=== PATIENT | male | born 1975 | race Two or more races ===

== ENCOUNTER 2023-04-10 01:44 | Emergency (ER) | payer BC ==
[2023-04-10 02:03] VITALS: PULSE 67; RESP 18; TEMP 97.9; BMI 32.3
[2023-04-10 03:10] LABS: BASO % 0.6 % (0-2.0); EOS % 1.7 % (0-4.5); HEMATOCRIT 42.1 % (35.4-49); HEMOGLOBIN 14.6 GM/dL (11.7-16.9); LYMPH % 38.6 % (8-40); MCH 28.4 pg (25.7-33.7); MCHC 34.6 g/dl (32.0-35.9); MEAN CELL VOLUME 82.1 fl (80-96); MEAN PLT VOLUME 8.9 fl (7.5-11.1); MONO % 4.1 % (3.8-10.2); PLATELET COUNT 256 10^3/uL (134-434); RBC 5.12 M/mm3 (4.00-5.60); RDW 13.9 % (11.9-15.9); WHITE BLOOD COUNT 11.6 K/mm3 (4.0-10.0)
[2023-04-10 03:30] LABS: POTASSIUM 4.4 mmol/L (3.5-5.1)
[2023-04-10 03:33] LABS: ALBUMIN 3.4 g/dl (3.4-5.0); BLOOD UREA NITROGEN 20.3 mg/dL (7-18); CALCIUM 9.1 mg/dL (8.5-10.1)
[2023-04-10 03:38] LABS: TOT PROT 6.7 g/dl (6.4-8.2)
[2023-04-10 03:42] LABS: BILIRUBIN,TOTAL 0.2 mg/dL (0.2-1)
[2023-04-10 04:15] VITALS: BP 138/93
== END 2023-04-10 04:15 | disposition home or self-care (01) ==
LOC: FER 01:44
DX: R10.12 Left upper quadrant pain (principal)
CPT/HCPCS: 36415; 76705-TC; 80053; 83690; 84484; 85025; 93005; 99285-25

== ENCOUNTER 2025-01-17 05:59 | Day surgery (SDC) | payer BC ==
[2025-01-14 09:20] VITALS: BMI 34.0
[2025-01-17 10:20] VITALS: TEMP 97.7
[2025-01-17 10:44] VITALS: BP 123/85; PULSE 65; RESP 19
== END 2025-01-17 10:44 | disposition home or self-care (01) ==
LOC: JASU-ENDO 05:59
PROVIDERS: ATTEND Internal Medicine Gastroenterology
PROC: 0DBN8ZX Excision of Sigmoid Colon, Via Natural or Artificial Opening Endoscopic, Diagnostic (ICD-10-PCS; 2025-01-17)
PROC: 0DB68ZX Excision of Stomach, Via Natural or Artificial Opening Endoscopic, Diagnostic (ICD-10-PCS; 2025-01-17)
PROC: 0DB78ZX Excision of Stomach, Pylorus, Via Natural or Artificial Opening Endoscopic, Diagnostic (ICD-10-PCS; 2025-01-17)
PROC: 0DBK8ZX Excision of Ascending Colon, Via Natural or Artificial Opening Endoscopic, Diagnostic (ICD-10-PCS; principal; 2025-01-17 09:00)
DX: Z12.11 Encounter for screening for malignant neoplasm of colon (principal); D12.2 Benign neoplasm of ascending colon; D12.5 Benign neoplasm of sigmoid colon; K29.50 Unspecified chronic gastritis without bleeding
CPT/HCPCS: 88305-TC; 88342-TC